=== PATIENT | male | born 1990 | race Caucasian/White ===

== ENCOUNTER 2017-07-19 20:29 | Emergency (ER) | payer SELFPAY ==
[~2017-07-19] VITALS: Ht 157.5 cm; Wt 63.5 kg
[2017-07-19] MEDS ORDERED: Lidocaine 1% MPF 10mg/ml 5ml INJ ONE (20:45)
[2017-07-19] MEDS ORDERED: Acetaminophen 500mg (ES) tab PO ONE (20:45)
[2017-07-19] MEDS ORDERED: Tetanus/Diptheria/Pertussis Vaccine 0.5ml Syr IM ONE (20:45)
[2017-07-19] MEDS ORDERED: Augmentin 875mg Tab ORAL ONE (20:45)
[2017-07-19] MEDS ORDERED: Neosporin Oint Ud Pkt TOP ONE (20:45)
--- NOTE | 2017-07-19 20:48 | Emergency Room Report ---
History of Present Illness General Chief Complaint: Animal Bite Source: Patient Present Illness HPI Patient presents with dog bite to his left hand. Is complaining of severe pain. He did drink alcohol. He's not sure when his last tetanus was. He denies any numbness. Has swelling. The pain radiates towards the wrist. He told RN this occurred 2 hours prior to presentation. Poor historian. (See further hx in course) Allergies: Coded Allergies: No Known Allergies (Unverified , 06/04/16) Patient History Limited by: medical condition Past Medical History: see triage record Social History: Reports: alcohol use Reviewed Nursing Documentation: PMH: Agreed, PSxH: Agreed Nursing Documentation-PMH Past Medical History: No Stated History Review of Systems All Other Systems: limited Physical Exam Vital Signs Date Time Temp Pulse Resp B/P (MAP) Pulse Ox O2 Delivery O2 Flow Rate FiO2 07/19/17 20:34 99.1 128 16 133/84 95 Room Air Sp02 EP Interpretation: reviewed, normal General Appearance: well appearing, no apparent distress Head: normocephalic, atraumatic Eyes: bilateral eye PERRL, bilateral eye Scleral Injection ENT: hearing grossly normal, normal voice Neck: full range of motion, supple Respiratory: no respiratory distress, speaking full sentences Gastrointestinal: normal inspection, non tender, decreased bowel sounds Musculoskeletal: digits/nails normal, normal range of motion, swelling - dorsum of hand, no erythema Neurologic: motor strength/tone normal, sensory intact, other - ataxic, slurred speech Psychiatric: depressed affect - poor cooperation Skin: abrasions, laceration - Dorsum of left hand between the MCP knuckles, linear, also PWs palmar surface Procedures Laceration/Wound Repair Laceration/Wound Repair : Consent: Verbal Wound Location: upper extremity Wound's Depth, Shape: into muscle Wound Length (cm): 3 - 2 knuckles, 1 palmar area Wound Explored: contaminated Betadine Prep?: Yes Anesthesia: 1% Lidocaine Wound Debrided: minimal Wound Repaired With: sutures Suture Size/Type: 5:0 Layer Closure?: No Sterile Dressing Applied?: Yes Splint Applied?: Yes Sling Applied?: Yes Patient Tolerated: Well Complications: None Medical Decision Making Diagnostic Impression: Primary Impression: Dog bite of left hand Qualified Codes: S61.452A - Open bite of left hand, initial encounter; W54.0XXA - Bitten by dog, initial encounter Additional Impressions: Alcohol intoxication Qualified Codes: F10.929 - Alcohol use, unspecified with intoxication, unspecified Urethritis ER Course Patient presents a dog bite his left hand. There is soft tissue swelling. The patient needs tetanus and antibiotics. Also the will be cleaned and loosely sutured. In cleaning the wound, it looks older than 2 hours. Copious irrigation. Poor cooperation. Debridement. Dressed and splint applied by tech. Position excellent. Neurovasc normal checked by me. Patient allowed to sober up. Now states just out of long-term. Bite 1 day old. States also has urethral discharge with multiple sexual partners. Treated also with rocephin and doxy. Warned of possible infection of bite area. Advised to return if worsening. Other X-Ray Diagnostic Results Other X-Ray Diagnostic Results : X-Ray ordered: hand # of Views/Limited Vs Complete: 3 View Indication: Other EP Interpretation: Yes Interpretation: no dislocation, no fractures, other - STS Impression: Other Electronically Signed by: Navjot Vilchis MD Last Vital Signs Date Time Temp Pulse Resp B/P (MAP) Pulse Ox O2 Delivery O2 Flow Rate FiO2 07/20/17 06:02 98.9 92 18 126/88 95 Room Air Status: improved Disposition: HOME, SELF-CARE Condition: Improved Scripts Doxycycline Monohydrate* (DOXYCYCLINE MONOHYDRATE*) 100 Mg Capsule 100 MG ORAL Q12H, #14 CAP 0 Refills Prov: Navjot Vilchis M.D. 07/20/17 Ibuprofen* (MOTRIN*) 600 Mg Tablet 600 MG ORAL Q6H Y for For Pain, #20 TAB Prov: Navjot Vilchis M.D. 07/20/17 Amoxicillin/Potassium Clav 500-125 Tablet* (AUGMENTIN 500-125 TABLET*) 1 Each Tablet 1 TAB ORAL THREE TIMES A DAY, #20 TAB Prov: Navjot Vilchis M.D. 07/20/17 Navjot Vilchis M.D. Jul 19, 2017 20:48
[2017-07-19 22:09] VITALS: BP 124/80
[2017-07-20 01:00] VITALS: BP 118/78
[2017-07-20] MEDS ORDERED: IBUPROFEN600 MG ORAL (02:49)
[2017-07-20] MEDS ORDERED: AUGMENTIN 500-1 EACH ORAL (02:49)
[2017-07-20 03:47] VITALS: BP 122/84
[2017-07-20] MEDS ORDERED: DOXYCYCLINE MO100 MG ORAL (05:36)
[2017-07-20 05:42] VITALS: BP 126/88
[2017-07-20] MEDS ORDERED: Lidocaine 1% MPF 10mg/ml 5ml INJ ONE (05:45)
[2017-07-20 06:02] VITALS: BP 126/88
--- NOTE | 2017-07-20 10:40 | Diagnostic Imaging Report ---
Indication: pain Findings: 3 views of the left hand were obtained. Normal alignment is demonstrated. No acute fractures, erosions, or periosteal reaction are seen. Soft tissues are unremarkable. Impression: No acute findings.
== END 2017-07-20 06:03 | disposition home or self-care (01) ==
LOC: EMR 20:45
DX: S61.412A Laceration without foreign body of left hand, initial encounter (principal); W54.0XXA Bitten by dog, initial encounter; Y92.9 Unspecified place or not applicable; Z23 Encounter for immunization; F10.129 Alcohol abuse with intoxication, unspecified; N34.2 Other urethritis
CPT/HCPCS: 12002; 73130; 90471; 90715; 96372; 99284; J0696

== ENCOUNTER 2018-01-14 18:39 | Emergency (ER) | payer MEDICAID ==
[2018-01-14] VITALS (11 sets, daily range): BP systolic 124–146; BP diastolic 80–89
[~2018-01-14] VITALS: Ht 162.6 cm; Wt 70.3 kg
[~2018-01-14 18:39] MED LIST: AUGMENTIN 500-1 EACH ORAL; DOXYCYCLINE MO100 MG ORAL; IBUPROFEN600 MG ORAL
[2018-01-14 19:34] LABS: EOSINOPHILS % (AUTO) 0.6 % (0.0-3.0); HEMATOCRIT 48.1 % (42.0-52.0); HEMOGLOBIN 15.3 G/DL (14.2-18.0); LYMPHOCYTES % (AUTO) 38.8 % (20.0-45.0); MEAN CORPUSCULAR VOLUME 81 FL (80-99); MONOCYTES % (AUTO) 9.4 % (1.0-10.0); NEUTROPHILS % (AUTO) 50.2 % (45.0-75.0); PLATELET COUNT 266 K/UL (150-450); RED BLOOD COUNT 5.94 M/UL (4.70-6.10); RED CELL DISTRIBUTION WIDTH 13.8 % (11.6-14.8); WHITE BLOOD COUNT 6.9 K/UL (4.8-10.8)
--- NOTE | 2018-01-14 19:34 | Emergency Room Report ---
History of Present Illness General Chief Complaint: To Be Triaged Present Illness HPI 27-year-old male patient presents ER brought in by ambulance and police on 5150 hold. Reports patient was drinking alcohol and flagged the police down. please reports that he stated he wanted to hurt himself and made a gun sign to his head. patient states that they have a problem with alcoholism and would like to seek treatment, states that he is not suicidal but made that sign in order to get some attention. Denies thoughts of hurting himself or others at this time. Denies chest pain, shortness of breath, other acute symptoms. Reports he drank 5 pints of vodka today. Reports was released from [facility] a few days ago.denies hitting head or loss of consciousness. Denies vomiting. Denies seizures. (Kingsley Godwin) Allergies: Coded Allergies: No Known Allergies (Unverified , 06/04/16) Patient History Past Medical History: see triage record Reviewed Nursing Documentation: PMH: Agreed; PSxH: Agreed (Kingsley Godwin) Review of Systems All Other Systems: negative except mentioned in HPI (Kingsley Godwin P.ARomaine) Physical Exam Vital Signs Date Time Temp Pulse Resp B/P (MAP) Pulse Ox O2 Delivery O2 Flow Rate FiO2 01/14/18 18:39 98.3 88 18 129/83 99 Room Air 98.2 Sp02 EP Interpretation: reviewed, normal General Appearance: well appearing, no apparent distress, alert, GCS 15, non- toxic Head: normocephalic, atraumatic Eyes: bilateral eye normal inspection, bilateral eye PERRL ENT: hearing grossly normal, normal pharynx, no angioedema, normal voice, uvula midline, moist mucus membranes Neck: full range of motion Respiratory: lungs clear, normal breath sounds, no rhonchi, no respiratory distress, no accessory muscle use, no wheezing, speaking full sentences Cardiovascular #1: normal inspection Genitourinary: no CVA tenderness Musculoskeletal: back normal, digits/nails normal, gait/station normal, normal range of motion, non-tender Neurologic: alert, oriented x3, responsive, motor strength/tone normal, sensory intact Psychiatric: mood/affect normal Skin: no rash (Kingsley GodwinARomaine) Medical Decision Making PA Attestation Dr. Khan is my supervising Physician whom patient management has been discussed with. Restraint Attestation I, TATY Farrell, have personally evaluated this patient. Laboratory tests have been reviewed and addressed accordingly. The patient is deemed to present a danger to themselves and/or others. This is based on the exam, history ( provided by patient, EMS/[facility] and/or family) and observed or reported behavior. Attempts for non-invasive measures have been considered and/or attempted, however, have been futile. It is in the best interest of the nursing staff, the patient, and others involved in this patient's care that behavioral restraints be applied. Patient evaluation reveals the following: (Kingsley Godwin) Diagnostic Impression: Primary Impression: Alcohol intoxication ER Course Pt. presents to the ED c/o Ddx considered but are not limited to anxiety, depression, drug use, alcohol use , behavioral disorder. Vital signs: are WNL, pt. is afebrile Ordered labs, urine drug screen, serum alcohol. ER COURSE: patient on a 5150 hold, ordered a sitter. Ordered labs to medically clear patient. Physical exam benign, lungs clear to auscultation, denies hitting his head or loss consciousness, has no acute complaints at this time. CBC and CMP unremarkable, no elevation in WBC and LFTs.. urine drug screen negative, no elevation salicylates or acetaminophen level. Blood serum alcohol elevated, patient provided with fluids. Will allow patient to sober up. Informed by certified scrub tech that patient states he "needs to leave" and is "going to leave". informed patient he is on a hold and not able to leave at this time. Patient states he is going to leave and he "needs his stuff". Ordered restraints for patient. on reevaluation, patient is resting comfortably in no acute distress. Patient medically cleared. Will attempt to place patient in psychiatric facility. patient signed out to Dr. Perdomo. - Please note that this Emergency Department Report was dictated using [employer] separator technology software, occasionally this can lead to erroneous entry secondary to interpretation by the dictation equipment. Labs Test 01/14/18 19:17 01/14/18 19:41 White Blood Count 6.9 K/UL (4.8-10.8) Red Blood Count 5.94 M/UL (4.70-6.10) Hemoglobin 15.3 G/DL (14.2-18.0) Hematocrit 48.1 % (42.0-52.0) Mean Corpuscular Volume 81 FL (80-99) Mean Corpuscular Hemoglobin 25.7 PG (27.0-31.0) Mean Corpuscular Hemoglobin Concent 31.7 G/DL (32.0-36.0) Red Cell Distribution Width 13.8 % (11.6-14.8) Platelet Count 266 K/UL (150-450) Mean Platelet Volume 6.8 FL (6.5-10.1) Neutrophils (%) (Auto) 50.2 % (45.0-75.0) Lymphocytes (%) (Auto) 38.8 % (20.0-45.0) Monocytes (%) (Auto) 9.4 % (1.0-10.0) Eosinophils (%) (Auto) 0.6 % (0.0-3.0) Basophils (%) (Auto) 1.0 % (0.0-2.0) Sodium Level 143 MMOL/L (136-145) Potassium Level 3.6 MMOL/L (3.5-5.1) Chloride Level 106 MMOL/L (98-107) Carbon Dioxide Level 28 MMOL/L (21-32) Anion Gap 9 mmol/L (5-15) Blood Urea Nitrogen 10 mg/dL (7-18) Creatinine 1.0 MG/DL (0.55-1.30) Estimat Glomerular Filtration Rate > 60 mL/min (>60) Glucose Level 137 MG/DL (74-106) Calcium Level 8.6 MG/DL (8.5-10.1) Total Bilirubin 0.6 MG/DL (0.2-1.0) Aspartate Amino Transf (AST/SGOT) 54 U/L (15-37) Alanine Aminotransferase (ALT/SGPT) 57 U/L (12-78) Alkaline Phosphatase 116 U/L (46-116) Total Protein 8.2 G/DL (6.4-8.2) Albumin 4.3 G/DL (3.4-5.0) Globulin 3.9 g/dL Albumin/Globulin Ratio 1.1 (1.0-2.7) Salicylates Level 0.4 ug/mL (2.8-20) Acetaminophen Level < 2 MCG/ML (10-30) Serum Alcohol 326 mg/dL Urine Opiates Screen Negative (NEGATIVE) Urine Barbiturates Screen Negative (NEGATIVE) Phencyclidine (PCP) Screen Negative (NEGATIVE) Urine Amphetamines Screen Negative (NEGATIVE) Urine Benzodiazepines Screen Negative (NEGATIVE) Urine Cocaine Screen Negative (NEGATIVE) Urine Marijuana (THC) Screen Negative (NEGATIVE) (Kingsley Godwin) ER Course Mr. Fall was evaluated by psychiatrist Dr. Wing in the ED. Dr. Wing rescinded 5150 hold. I spoke with Mr. Fall. He denies SI once sober. HE did not have any concerns or needs. We provided outpatient substance abuse resources. (LANDON ROSARIO) Last Vital Signs Date Time Temp Pulse Resp B/P (MAP) Pulse Ox O2 Delivery O2 Flow Rate FiO2 01/14/18 18:39 98.3 88 18 129/83 99 Room Air 98.2 (Kingsley Godwin) Kingsley Godwin Jan 14, 2018 19:34 LANDON ROSARIO Jan 15, 2018 11:21
[2018-01-14 19:44] LABS: ANION GAP 9 mmol/L (5-15); BLOOD UREA NITROGEN 10 mg/dL (7-18); CALCIUM 8.6 MG/DL (8.5-10.1); CARBON DIOXIDE 28 MMOL/L (21-32); CHLORIDE 106 MMOL/L (98-107); POTASSIUM 3.6 MMOL/L (3.5-5.1); SODIUM 143 MMOL/L (136-145)
[2018-01-14 19:50] LABS: ALANINE AMINOTRANSFERASE 57 U/L (12-78); ALBUMIN 4.3 G/DL (3.4-5.0); ALBUMIN/GLOBULIN RATIO 1.1 (1.0-2.7); ALKALINE PHOSPHATASE 116 U/L (46-116); ASPARTATE AMINO TRANSFERASE 54 U/L (15-37); BILIRUBIN,TOTAL 0.6 MG/DL (0.2-1.0)
[2018-01-15 03:45] VITALS: BP 128/78
[2018-01-15] MEDS ORDERED: LORazepam 1mg tab ORAL ONE (06:15)
[2018-01-15 06:17] VITALS: BP 142/89
[2018-01-15 07:15] VITALS: BP 132/80
[2018-01-15 11:40] VITALS: BP 118/75
--- NOTE | 2018-01-15 14:09 | Consultation ---
History of Present Illness General Date patient seen: Jan 15, 2018 Chief Complaint: Alcohol Intoxication Present Illness HPI 27-year-old male presents ER brought in by ambulance and police on 5150 hold. The patient was drinking alcohol severely and flagged the police down. The pt stated he wanted to hurt himself and simulated a gun sign to his head. The pt stated that she was recently released from residential. The pt stated that he is not able to function outside of residential and he was trying to get himself arrested. the pt stated that he has lost his whole family including his kids. the pt stated that he is not suicidal nor homicidal. the pt is not endorsing psychotic or manic sxs. he has alcohol dependence issues Allergies: Coded Allergies: No Known Allergies (Unverified , 06/04/16) Medication History Scheduled Amoxicillin/Potassium Clav 500-125 Tablet* (Augmentin 500-125 Tablet*), 1 TAB ORAL THREE TIMES A DAY Doxycycline Monohydrate* (Doxycycline Monohydrate*), 100 MG ORAL Q12H Scheduled PRN Ibuprofen* (Motrin*), 600 MG ORAL Q6H PRN for For Pain Patient History Limited by: medical condition History Provided By: Patient, Medical Record, PMD Healthcare decision maker Resuscitation status Advanced Directive on File Past Medical/Surgical History Past Medical/Surgical History: (1) Urethritis (2) Dog bite of left hand (3) Alcohol intoxication Review of Systems Psychiatric: Reports: anxiety, depressed feelings, emotional problems Physical Exam General Appearance: no apparent distress, alert Neurologic: oriented x 3, responsive, depressed affect Last 24 Hour Vital Signs Date Time Temp Pulse Resp B/P (MAP) Pulse Ox O2 Delivery O2 Flow Rate FiO2 01/15/18 07:15 98.6 90 22 132/80 99 Room Air 98.6 01/15/18 06:17 86 20 142/89 98 Room Air 01/15/18 03:45 98 20 128/78 95 Room Air 01/14/18 23:00 88 16 92 Room Air 01/14/18 22:57 131 131/84 92 Room Air 01/14/18 22:45 101 18 95 Room Air 01/14/18 22:30 88 18 93 Room Air 01/14/18 22:15 86 18 93 Room Air 01/14/18 22:00 94 18 92 Room Air 01/14/18 21:45 101 19 93 Room Air 01/14/18 21:30 101 20 95 Room Air 01/14/18 21:15 98.3 104 17 92 Room Air 01/14/18 21:00 104 17 92 Room Air 01/14/18 20:45 103 18 94 Room Air 01/14/18 20:45 103 18 146/89 94 Room Air 01/14/18 18:39 98.3 88 18 129/83 99 Room Air 98.2 Intake and Output 01/14/18 01/15/18 19:00 07:00 Intake Total 1000 ml Balance 1000 ml Intake IV Total 1000 ml # Voids 1 Laboratory Tests Test 01/14/18 19:17 01/14/18 19:41 01/15/18 04:28 White Blood Count 6.9 K/UL (4.8-10.8) Red Blood Count 5.94 M/UL (4.70-6.10) Hemoglobin 15.3 G/DL (14.2-18.0) Hematocrit 48.1 % (42.0-52.0) Mean Corpuscular Volume 81 FL (80-99) Mean Corpuscular Hemoglobin 25.7 PG (27.0-31.0) L Mean Corpuscular Hemoglobin Concent 31.7 G/DL (32.0-36.0) L Red Cell Distribution Width 13.8 % (11.6-14.8) Platelet Count 266 K/UL (150-450) Mean Platelet Volume 6.8 FL (6.5-10.1) Neutrophils (%) (Auto) 50.2 % (45.0-75.0) Lymphocytes (%) (Auto) 38.8 % (20.0-45.0) Monocytes (%) (Auto) 9.4 % (1.0-10.0) Eosinophils (%) (Auto) 0.6 % (0.0-3.0) Basophils (%) (Auto) 1.0 % (0.0-2.0) Sodium Level 143 MMOL/L (136-145) Potassium Level 3.6 MMOL/L (3.5-5.1) Chloride Level 106 MMOL/L (98-107) Carbon Dioxide Level 28 MMOL/L (21-32) Anion Gap 9 mmol/L (5-15) Blood Urea Nitrogen 10 mg/dL (7-18) Creatinine 1.0 MG/DL (0.55-1.30) Estimat Glomerular Filtration Rate > 60 mL/min (>60) Glucose Level 137 MG/DL (74-106) H Calcium Level 8.6 MG/DL (8.5-10.1) Total Bilirubin 0.6 MG/DL (0.2-1.0) Aspartate Amino Transf (AST/SGOT) 54 U/L (15-37) H Alanine Aminotransferase (ALT/SGPT) 57 U/L (12-78) Alkaline Phosphatase 116 U/L (46-116) Total Protein 8.2 G/DL (6.4-8.2) Albumin 4.3 G/DL (3.4-5.0) Globulin 3.9 g/dL Albumin/Globulin Ratio 1.1 (1.0-2.7) Salicylates Level 0.4 ug/mL (2.8-20) L Acetaminophen Level < 2 MCG/ML (10-30) L Serum Alcohol 326 mg/dL 120 mg/dL Urine Opiates Screen Negative (NEGATIVE) Urine Barbiturates Screen Negative (NEGATIVE) Phencyclidine (PCP) Screen Negative (NEGATIVE) Urine Amphetamines Screen Negative (NEGATIVE) Urine Benzodiazepines Screen Negative (NEGATIVE) Urine Cocaine Screen Negative (NEGATIVE) Urine Marijuana (THC) Screen Negative (NEGATIVE) Height (Feet): 5 Height (Inches): 4.00 Weight (Pounds): 155 Assessment/Plan Status: stable Assessment/Plan Alcohol dependence Alcohol w/d -The pt is not at imminant dts/dto -The pt is suicidal and he needs alcohol dependence treatment -dc 5150 -discharge with referrals Todd Wing MD Jan 15, 2018 14:09
== END 2018-01-15 11:40 | disposition home or self-care (01) ==
LOC: EDBD 18:39 → EMR 19:09
DX: F10.129 Alcohol abuse with intoxication, unspecified (principal); Y90.8 Blood alcohol level of 240 mg/100 ml or more
CPT/HCPCS: 36415; 80053; 80307; 80329; 85025; 96360; 99284